=== PATIENT | female | born 1960 | race Caucasian/White ===

== ENCOUNTER → 2016-09-06 | Day surgery (SDC) | payer MEDICARE, OTHER ==
[~2016-09-06] MED LIST: ALDACTONE25 MG PO; ASPIRIN81 M2 PO; CATAPRES0.1 MG PO; ESTRACE PO; HYDROCODON-ACE1 EAC4 PO; HYDROCODONE-APA1 T54 PO; LASIX20 MG PO; LYRICA PO; MS CONTIN15 M1 PO; MS CONTIN15 MG PO; NABUMETONE PO; PERCOCET10 PO; ROBAXIN PO; TOPAMAX25 MG PO; VICODIN PO
--- NOTE | ~2016-09-06 | OR ---
Unit #: [id number] #: [id number] Patient: FERNIE CHAVEZ [id number] [address] [place], [place] [address] [id number] MR#: [id number] NAME: FERNIE CHAVEZ ROOM: Date of Procedure: 09/06/2016 Admission Date: 09/06/2016 Surgeon: Alessandro Florentino III, M.D. : 1960 Attending Physician: Alessandro Florentino III, M.D. Primary Care Physician: Shae Hamlin OPERATIVE REPORT PREOPERATIVE DIAGNOSIS Nausea. POSTOPERATIVE DIAGNOSIS Mild gastritis. PROCEDURE PERFORMED Esophagogastroduodenoscopy with biopsy. ANESTHESIA MAC. SPECIMENS Antrum was sent for BELEM and for path. COMPLICATIONS None apparent. INDICATIONS FOR PROCEDURE This is a 55-year-old lady, who has been having some chronic nausea. She has already had her gallbladder removed. She does not really have any symptoms that would be attributable to her lap band. She is here today for upper endoscopy. DESCRIPTION OF PROCEDURE After consent was obtained, the patient was brought to the endoscopy suite and placed in the left lateral decubitus position. We titrated the above sedation and I passed an EGD scope easily into the esophagus under direct visualization. She had normal mucosa with no evidence of any erosions or esophagitis. The gastric band pouch appeared to be normal in size. I was able to easily pass the scope through the opening of the band. She had some mild gastritis near the antrum and there were otherwise no other ulcers or masses. The pylorus was patent and first and second portions of the duodenum appeared normal. I then took a biopsy of the antrum for BELEM and for path. The scope was retroflexed within the cardia and again, the band was in good position with no evidence of any erosion. The scope was straightened and then carefully withdrawn. The patient tolerated the procedure without any problems and returned to recovery room in stable condition. Dictated by... Unit #: [id number] #: [id number] Patient: FERNIE CHAVEZ Alessandro Florentino III, M.D. VCL/edithl TD: 09/07/2016 00:52 JOB #: [id number] OPERATIVE REPORT X Alessandro Florentino III, MD PROCEDURE OPERATIVE NOTE
== END | disposition home or self-care (01) ==
LOC: COPS 10:29
DX: K29.70 Gastritis, unspecified, without bleeding (principal); Z90.49 Acquired absence of other specified parts of digestive tract; E78.5 Hyperlipidemia, unspecified; G47.33 Obstructive sleep apnea (adult) (pediatric); Z88.0 Allergy status to penicillin; Z88.8 Allergy status to other drugs, medicaments and biological substances; Z83.3 Family history of diabetes mellitus; Z82.49 Family history of ischemic heart disease and other diseases of the circulatory system; Z98.84 Bariatric surgery status
CPT/HCPCS: 87077; 88305; 88312; J2250